=== PATIENT | male | born 1950 | race Caucasian/White ===

== ENCOUNTER → 2017-12-09 10:53 | Outpatient (CLI) | payer MEDICARE, OTHER, SELFPAY ==
--- NOTE | 2017-12-16 10:37 | PM.PFT.1 ---
Pulmonary Function Test Referral & Results Date Patient Seen: 12/09/17 Requesting provider: Tyron Pacheco Results: The spirometry demonstrates an FVC of 4.37 L which is 91% of predicted. The FEV1 was measured at 2.77 L which is 70% of predicted. The FEV1/FVC ratio was 63 which is 85% of predicted. Following the administration of bronchodilator there was 15% improvement in FEV1 and a 67% improvement in FEF 25-75%. Lung volumes show an SVC of 4.47 L which is 91% of predicted. The diffusing capacity was measured at 27.78 which is 79% of predicted. No hemoglobin value was provided, so no correction for potential anemia could be made, if appropriate. The maximum voluntary ventilation was reduced Interpretation: This study demonstrates mild obstructive lung disease based on reduction in FEV1 with evidence of perhaps minimal improvement following bronchodilator based on improvement in FEV1 of 15% and a 67% improvement in FEF 25-75%, which would suggest more peripheral small airway flow improvement There is also minimal reduction in diffusing capacity less patient is anemic. This would suggest some element of disease at the capillary alveolar level Clinical correlation suggested
== END ==
PROVIDERS: PCP Family Medicine; Visit Provider Internal Medicine Pulmonary Disease
DX: R06.02 Shortness of breath (principal)
CPT/HCPCS: 94010; 94060; 94726; 94729

== ENCOUNTER → 2018-01-26 08:56 | Outpatient (CLI) | payer MEDICARE, OTHER, SELFPAY ==
--- NOTE | 2018-01-28 11:12 | PM.PFT.1 ---
Pulmonary Function Test Referral & Results Date Patient Seen: 01/26/18 Requesting provider: Tyron Pacheco Results: At ordering physician's request only spirometry after bronchodilator was administered was performed Patient's post bronchodilator FVC was 4.32 L which is 90% predicted Patient is post bronchodilator FEV1 was 2.90 L which is 82% of predicted The FEV1/FVC ratio was 67 which is 90% of predicted. Interpretation: There is evidence of perhaps obstructive lung disease based on reduction FEV1 even post bronchodilator. Given lack of pre bronchodilator numbers impossible to tell whether there was any pre-existing obstructive lung disease improved with the use of bronchodilator Patient also had complete set of PFTs performed in November 2017, and at that time spirometry values were slightly higher than current numbers post bronchodilator in both cases. Clinical correlation suggested
== END ==
PROVIDERS: PCP Family Medicine; Visit Provider Internal Medicine Pulmonary Disease
DX: J45.30 Mild persistent asthma, uncomplicated (principal); Z23 Encounter for immunization
CPT/HCPCS: 94060

== ENCOUNTER → 2018-05-16 16:47 | Outpatient (CLI) | payer MEDICARE, OTHER, SELFPAY ==
[2018-05-16 17:45] LABS: Add Manual Diff / Slide Review NO; Basophils Absolute Auto 0 /uL (0-100); Basophils Percent Auto 0.7 % (0-2); Eosinophils Absolute Auto 100 /uL (0-450); Eosinophils Percent Auto 1.2 % (2-4); Hematocrit 45.3 % (41-53); Hemoglobin 15.3 g/dL (13.5-17.5); Lymphocytes Absolute Auto 1600 /uL (1100-4500); Mean Corpuscular HGB Conc 33.7 % (30-36); Mean Corpuscular Hemoglobin 31.8 PG (26-34); Mean Corpuscular Volume 94.4 fL (80-100); Monocytes Absolute Auto 500 /uL (0-900); Neutrophils Absolute Auto 4500 /uL (1500-7000); Neutrophils Percent Auto 67.1 % (50-75); Platelet Count 146 X10^3/uL (150-400); Red Cell Distribution Width 12.6 % (11.6-14.8); White Blood Cell Count 6.7 X10^3/uL (4.5-11.0)
[2018-05-16 18:01] LABS: Prothrombin Time 11.3 SECONDS (10.1-12.7)
[2018-05-16 18:03] LABS: PTT Partial Thromboplastin Tim 39 SECONDS (26.4-36.2)
== END ==
PROVIDERS: Family Provider Surgery; PCP Family Medicine; Visit Provider Family Medicine
DX: K62.5 Hemorrhage of anus and rectum (principal)
CPT/HCPCS: 36415; 85025; 85610; 85730

== ENCOUNTER 2018-06-13 09:42 | Day surgery (SDC) | payer MEDICARE, OTHER, SELFPAY ==
[2018-06-13 10:00] VITALS: BMI 23.0
[2018-06-13] MEDS: SODIUM CHLORIDE 0.9% 1,000 ML 200 ML IV (10:02)
[2018-06-13 10:14] VITALS: BP 140/80; PULSE 62; RESP 16; TEMP 36.3; O2SAT 100
--- NOTE | 2018-06-13 10:54 | PM.PREOP ---
Pre-operative Note Interval Note History & Physical reviewed/Exam performed by Physician: Yes Changes to H&P: No H&P completed within 30 days and has changed as indicated here:: Reiterated risks of colonoscopy including bleeding, perforation, failure to find removal lesions of the potential tattoo. ASA Class (for procedural sedation): II
[2018-06-13] MEDS: MIDAZOLAM 5 MG/5 ML VIAL IV (11:48)
[2018-06-13] MEDS: fentaNYL 250 MCG/5 ML INJ IV (11:49)
--- NOTE | 2018-06-13 12:12 | PM.OP.ENDO ---
Operative Date/Time/Diagnoses Date of procedure: 06/13/18 Time of procedure: 12:12 Pre-op diagnosis: Rectal bleeding. History of polyps. Last exam about 5 years ago. Post-op diagnosis: same (Cause of bleeding uncertain. No evidence of active bleeding at this time.) Procedure & Clinicians Study performed: Colonoscopy Same procedure as scheduled: Yes Indications: Rectal bleeding Surgeon: Mario Arshad Procedure Notes SCOAP/Timeout: Performed Procedure in detail: The patient was placed in the left lateral decubitus position and underwent IV sedation directed by the surgeon consisting of fentanyl and Versed. Digital exam was remarkable for a symmetric but mildly enlarged prostate. The scope was inserted and advanced through the rectum into the sigmoid, descending, transverse, and ascending colon. The patient had a few sigmoid diverticuli. The cecum was reached identified by the ileocecal valve and the appendiceal opening. The scope was gradually brought out. No Polyps were found. The scope ultimately was retroflexed in the rectum. The appearance was normal. However slowly withdrawing the scope through the anus did reveal hemorrhoids at that level but there was no ulceration.. The scope was removed and the patient tolerated the procedure well. The prep was very good. Scope withdrawal time: Almost 8 min Sedation minutes: 22 Findings: diverticulosis (Sigmoid) and internal hemorrhoids (Small right at the anal verge) Specimen(s): none sent Complications: none Recommendations: Colonscopy in 5 years (Due to a personal history of polyps) Follow up: as needed Disposition: PACU
[2018-06-13 12:15] VITALS: BP 110/64; PULSE 60; RESP 10; TEMP 36.4; O2SAT 98
[2018-06-13 12:20] VITALS: BP 106/69; PULSE 61; RESP 10; O2SAT 98
[2018-06-13 12:25] VITALS: BP 114/71; PULSE 65; RESP 11; O2SAT 100
[2018-06-13 12:47] VITALS: BP 113/74; PULSE 58; RESP 16; TEMP 37.1; O2SAT 99
== END 2018-06-13 12:51 | disposition home or self-care (01) ==
PROVIDERS: Family Provider Surgery; PCP Family Medicine; Visit Provider Specialist
PROC: 0DJD8ZZ Inspection of Lower Intestinal Tract, Via Natural or Artificial Opening Endoscopic (ICD-10-PCS; CPT 45378; principal; 2018-06-13 10:45)
DX: K62.5 Hemorrhage of anus and rectum (principal); Z86.010 Personal history of colon polyps; K64.8 Other hemorrhoids; F41.9 Anxiety disorder, unspecified; J44.9 Chronic obstructive pulmonary disease, unspecified; F32.9 Major depressive disorder, single episode, unspecified; D68.51 Activated protein C resistance; K57.30 Diverticulosis of large intestine without perforation or abscess without bleeding
CPT/HCPCS: 45378; 99152; J2250; J3010

== ENCOUNTER → 2024-09-14 09:22 | Outpatient (CLI) | payer OTHER, SELFPAY ==
--- NOTE | 2024-09-14 09:55 | EKG_ITS ---
[address] [address] Test Date: 2024-09-14 Pat Name: Gael Phillips Department: [facility] Room: Gender: Male Network Pricing Consultant: feroz : 1950 Requested By: Order Number: [id number] Reading MD: Florentino Blankenship MD Measurements Intervals [place] Rate: 56 P: 71 CA: 190 QRS: 40 QRSD: 112 T: 63 QT: 420 QTc: 405 Interpretive Statements Sinus bradycardia Incomplete right bundle branch block NO SIGNIFICANT CHANGE FROM PRIOR TRACING Electronically Signed On 09-14-2024 10:02:34 PDT by Florentino Blankenship MD
== END ==
LOC: RESP 09:26
PROVIDERS: PCP Family Medicine; Referring Provider Podiatrist; Visit Provider Podiatrist
DX: Z01.818 Encounter for other preprocedural examination (principal)
CPT/HCPCS: 93005